=== PATIENT | female | born 1980 | race Caucasian/White ===

== ENCOUNTER 2021-05-12 13:22 | Emergency (ER) | payer MEDICAID, OTHER ==
--- NOTE | 2021-05-12 14:03 | EDM.PDOC ---
ED HPI GENERAL MEDICAL PROBLEM - General Chief Complaint: Respiratory Problem Stated Complaint: RESPIRATORY ISSUES Time Seen by Provider: 05/12/21 13:47 Source of Information: Reports: Patient, RN Notes Reviewed History Limitations: Reports: No Limitations - History of Present Illness INITIAL COMMENTS - FREE TEXT/NARRATIVE: 41-year-old female presents emergency department day complaint of cough and congestion she has not had any fevers she does have reactive airway disease with recurrent bronchitis has been out of her inhaler she does have one individual in her house who is ill. 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: Reports: - Infectious Disease History Infectious Disease History: Reports: Chicken Pox - Past Surgical History HEENT Surgical History: Reports: Adenoidectomy, Naso-Sinus Surgery GI Surgical History: Reports: Appendectomy Female Surgical History: Reports: Tubal Ligation Social & Family History - Tobacco Use Tobacco Use Status *Q: Current Every Day Tobacco User Years of Tobacco use: 10 Packs/Tins Daily: 0.5 - Recreational Drug Use Recreational Drug Use: No ED ROS GENERAL - Review of Systems Review Of Systems: See Below Constitutional: Denies: Fever, Chills HEENT: Reports: No Symptoms Respiratory: Reports: Shortness of Breath, Wheezing, Cough. Denies: Sputum Cardiovascular: Reports: Dyspnea on Exertion GI/Abdominal: Reports: No Symptoms ED EXAM, GENERAL - Physical Exam Exam: See Below Exam Limited By: No Limitations General Appearance: Alert, WD/WN, No Apparent Distress Respiratory/Chest: No Respiratory Distress, No Accessory Muscle Use, Chest Non- Tender, Decreased Breath Sounds, Rhonchi Cardiovascular: Regular Rate, Rhythm, No Murmur Course - Vital Signs Last Recorded V/S: Last Vital Signs Temp 97.8 F 05/12/21 13:55 Pulse 80 05/12/21 13:55 Resp 14 05/12/21 13:55 BP 130/73 05/12/21 13:55 Pulse Ox 97 05/12/21 13:55 - Orders/Labs/Meds Labs: Laboratory Tests 05/12/21 Range/Units 14:12 SARS CoV-2 RNA Rapid SUJATA Negative Departure - Departure Time of Disposition: 14:34 Disposition: Home, Self-Care 01 Condition: Fair Clinical Impression: Acute bronchiolitis Qualifiers: Bronchiolitis organism: other organism Qualified Code(s): J21.8 - Acute bronchiolitis due to other specified organisms - Discharge Information Prescriptions: Amoxicillin/Potassium Clav [Augmentin 875-125 Tablet] 1 each PO BID #14 tablet Albuterol [Proventil HFA] 2 puff INH Q4H PRN #1 ea PRN Reason: Dyspnea Albuterol [Proventil Neb Soln] 2.5 mg .XX QID PRN #90 ml PRN Reason: Dyspnea Instructions: Upper Respiratory Infection, Adult, [id number] Referrals: PCP,None [Primary Care Provider] - Forms: ED Department Discharge Additional Instructions: Take full course of antibiotics use your albuterol inhaler as needed, please followup with your primary care provider in 3-5 days if not better, please call return to the emergency department with worsening of symptoms., Sepsis Event Note (ED) - Evaluation Sepsis Screening Result: No Definite Risk - Focused Exam Vital Signs: Vital Signs Temp Pulse Resp BP Pulse Ox 05/12/21 13:55 97.8 F 80 14 130/73 97 05/12/21 13:49 97.8 F 80 14 130/73 97 - Assessment/Plan Plan: Assessment Acuity = acute Site and laterality = bronchitis Etiology = unknown Manifestations = cough Location of injury = Home Lab values = Covid test negative Plan Like to treat empirically Augmentin 875 p.o. twice daily x7 days, refilled albuterol nebs and inhaler follow-up primary care 3 to 5 days if not better medications faxed to [facility] This note was dictated using [employer] recognition software please call with any questions on syntax or grammar.
== END 2021-05-12 14:49 | disposition home or self-care (01) ==
LOC: MERGE 13:22 → JP.ED 13:22
DX: J21.8 Acute bronchiolitis due to other specified organisms (principal); Z72.0 Tobacco use; Z20.822 Contact with and (suspected) exposure to COVID-19
CPT/HCPCS: 99283; U0002

== ENCOUNTER 2021-05-14 05:23 | Emergency (ER) | payer MEDICAID ==
--- NOTE | 2021-05-14 05:42 | EDM.PDOC ---
ED HPI GENERAL MEDICAL PROBLEM - General Chief Complaint: Respiratory Problem Stated Complaint: SOB Time Seen by Provider: 05/14/21 05:35 Source of Information: Reports: Patient History Limitations: Reports: No Limitations - History of Present Illness INITIAL COMMENTS - FREE TEXT/NARRATIVE: pt had a bronchitis and was seen on Thursday. She was placed on augmentin Onset: Gradual Duration: Day(s):, Getting Worse Location: Reports: Chest Associated Symptoms: Reports: Cough Upper Chest Pain Score (Numeric/FACES): 2 - Related Data Allergies Allergy/AdvReac Type Severity Reaction Status Date / Time No Known Allergies Allergy Verified 05/16/21 14:02 Home Meds: Home Meds Albuterol [Proventil HFA] 2 puff INH Q4H PRN #1 ea 05/12/21 [Rx] Albuterol [Proventil Neb Soln] 2.5 mg .XX QID PRN #90 ml 05/12/21 [Rx] Amoxicillin/Potassium Clav [Augmentin 875-125 Tablet] 1 each PO BID #14 tablet 05/12/21 [Rx] Past Medical History Respiratory History: Reports: Bronchitis, Recurrent Gastrointestinal History: Reports: None 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: - Infectious Disease History Infectious Disease History: Reports: Chicken Pox - Past Surgical History HEENT Surgical History: Reports: Adenoidectomy, Naso-Sinus Surgery GI Surgical History: Reports: Appendectomy Female Surgical History: Reports: Tubal Ligation ED ROS GENERAL - Review of Systems Review Of Systems: See Below Constitutional: Reports: Chills HEENT: Reports: No Symptoms, Sinus Problem Respiratory: Reports: Shortness of Breath, Wheezing, Cough Cardiovascular: Reports: No Symptoms Endocrine: Reports: No Symptoms GI/Abdominal: Reports: No Symptoms : Reports: No Symptoms Musculoskeletal: Reports: No Symptoms Skin: Reports: No Symptoms Neurological: Reports: No Symptoms Psychiatric: Reports: Anxiety ED EXAM, GENERAL - Physical Exam Exam: See Below Free Text/Narrative:: pt arrived feeling sob. She was very wheezy. She has been using her neb every 6 hours. She has not had a fever. Exam Limited By: No Limitations General Appearance: Alert, Anxious, Moderate Distress Ears: Normal TMs Nose: Normal Inspection Throat/Mouth: Normal Inspection Head: Atraumatic Neck: Normal Inspection Respiratory/Chest: Decreased Breath Sounds, Wheezing Cardiovascular: Regular Rate, Rhythm GI/Abdominal: Soft, Non-Tender Rectal (Female) Exam: Deferred Back Exam: Normal Inspection Extremities: Normal Inspection Course - Vital Signs Last Recorded V/S: Last Vital Signs Temp 36.4 C 05/14/21 05:40 Pulse 97 05/14/21 05:40 Resp 18 05/14/21 05:40 BP 120/76 05/14/21 05:40 Pulse Ox 95 05/14/21 05:40 - Orders/Labs/Meds Labs: Laboratory Tests 05/14/21 Range/Units 05:50 WBC 14.3 H (4.5-11.0) K/uL RBC 4.83 (3.30-5.50) M/uL Hgb 14.2 (12.0-15.0) g/dL Hct 41.5 (36.0-48.0) % MCV 86 (80-98) fL MCH 29 (27-31) pg MCHC 34 (32-36) % Plt Count 214 (150-400) K/uL Neut % (Auto) 82.2 H (36-66) % Lymph % (Auto) 9.8 L (24-44) % Carbon % (Auto) 6.8 H (2-6) % Eos % (Auto) 1.1 L (2-4) % Baso % (Auto) 0.1 (0-1) % Meds: Medications Discontinued Medications Generic Name Dose Route Start Last Admin Trade Name Freq PRN Reason Stop Dose Admin Albuterol/Ipratropium 3 ml 05/14/21 05:55 05/14/21 06:17 Albuterol/Ipratropium 3.0-0.5 Mg/3 Ml Neb Soln NEB 05/14/21 05:56 3 ml ONETIME ONE Administration Ceftriaxone Sodium 1 gm/ 50 mls @ 100 mls/hr 05/14/21 06:36 05/14/21 06:46 Sodium Chloride IV 05/14/21 07:05 100 mls/hr ONETIME ONE Administration Methylprednisolone Sodium Succinate 125 mg 05/14/21 05:54 05/14/21 06:15 Methylprednisolone Sodium Succinate 125 Mg/2 Ml Sdv IVPUSH 05/14/21 05:55 125 mg ONETIME ONE Administration Sodium Chloride 10 ml 05/14/21 05:54 05/14/21 06:19 Sodium Chloride 0.9% 10 Ml Syringe FLUSH 10 ml ASDIRECTED PRN Administration Keep Vein Open - Re-Assessments/Exams Free Text/Narrative Re-Assessment/Exam: 05/14/21 06:41 pt was given solumedrol 125 mg iv. She was given rocephen 1 gram, She had a chest xray which did not show a pneumonia her wbc was elevated. Departure - Departure Time of Disposition: 06:42 Disposition: Home, Self-Care 01 Condition: Fair Clinical Impression: Bronchitis - Discharge Information Instructions: Acute Bronchitis, Adult, [id number] Referrals: PCP,None [Primary Care Provider] - Forms: ED Department Discharge Care Plan Goals: no work on wed, push fluids, cool mist humidfier, continue augmentin, continue nebs, and add predisone 20 mg for 2 days 15 mg for 2 days and 10 mg daily for 5 days.
[2021-05-14] MEDS ORDERED: methylPREDNISolone Sodium Succinate 125 MG/2 ML SDV IVPUSH ONE (05:54)
[2021-05-14] MEDS ORDERED: Sodium Chloride 0.9% 10 ML Syringe FLUSH PRN (05:54)
[2021-05-14] MEDS ORDERED: Albuterol/Ipratropium 3.0-0.5 MG/3 ML Neb Soln NEB ONE (05:55)
[2021-05-14] MEDS ORDERED: cefTRIAXone 1 GM in Sodium Chloride 0.9% 50 ML IV ONE (06:36)
--- NOTE | 2021-05-14 10:21 | CR ---
CHEST: 2 view CLINICAL HISTORY:SOB and cough COMPARISON:None FINDINGS: The heart size, pulmonary vascularity and hilar structures are normal. No infiltrate effusion or pneumothorax is seen. IMPRESSION: No acute cardiopulmonary process.
== END 2021-05-14 07:16 | disposition home or self-care (01) ==
LOC: MERGE 05:23 → JP.ED 05:23
DX: J40 Bronchitis, not specified as acute or chronic (principal)
CPT/HCPCS: 36415; 71046; 85025; 94640; J0696; J2930; 96365; 96375; 99284-25; J7620-GY

== ENCOUNTER 2021-09-20 09:17 | Emergency (ER) | payer MEDICAID ==
--- NOTE | 2021-09-20 11:17 | EDM.PDOC ---
ED HPI GENERAL MEDICAL PROBLEM - General Chief Complaint: Respiratory Problem Stated Complaint: COUGHING UP BLOOD Time Seen by Provider: 09/20/21 11:05 Source of Information: Reports: Patient, Old Records History Limitations: Reports: No Limitations - History of Present Illness INITIAL COMMENTS - FREE TEXT/NARRATIVE: 41 yo female was seen in the [facility] yesterday and had a negative Covid test and blood work. She does not know the results of the blood work. She was given an Rx for prednisone that she started this AM. Has been coughing and running a fever. Daughter with the same sx's. Today coughed up some blood and called back to the clinic and was told to come to the ER. No records forwarded from the clinic. Is not on any anticoagulants. Feels no worse than yesterday. Does smoke cigarettes. Had a CXR in clinic that was suggestive of viral bronchitis and/or viral pneumonia. WBC ct yesterday was neg. Onset: Gradual Duration: Day(s):, Constant Location: Reports: Chest, Generalized Quality: Reports: Ache (mild, diffuse) Severity: Mild Improves with: Reports: Medication (took acetaminophen a couple hrs ago) Worsens with: Reports: None Context: Reports: Other (See HPI) Associated Symptoms: Reports: Cough, Fever/Chills, Malaise, Other (hemoptysis). 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: Acetaminophen, Other (see below) (one dose of prednisone) Chest Pain Score (Numeric/FACES): 5 - Related Data Allergies Allergy/AdvReac Type Severity Reaction Status Date / Time No Known Allergies Allergy Verified 09/20/21 10:32 Home Meds: Home Meds Albuterol [Proventil HFA] 2 puff INH Q4H PRN #1 ea 05/12/21 [Rx] Albuterol [Proventil Neb Soln] 2.5 mg .XX QID PRN #90 ml 05/12/21 [Rx] Codeine/guaiFENesin [Robitussin AC] 5 - 10 ml PO Q4H PRN #1 ml 09/20/21 [Rx] Oseltamivir Phosphate 75 mg PO BID 09/20/21 [History] predniSONE [Prednisone] 40 mg PO DAILY 09/20/21 [History] Past Medical History HEENT History: Reports: Impaired Vision Respiratory History: Reports: Bronchitis, Recurrent Gastrointestinal History: Reports: None RN OCCUPATIONAL History: Reports: - Infectious Disease History Infectious Disease History: Reports: Chicken Pox - Past Surgical History HEENT Surgical History: Reports: Adenoidectomy, Naso-Sinus Surgery GI Surgical History: Reports: Appendectomy Female Surgical History: Reports: Tubal Ligation Social & Family History - Caffeine Use Caffeine Use: Reports: Coffee - Recreational Drug Use Recreational Drug Use: No ED ROS GENERAL - Review of Systems Review Of Systems: See Below Constitutional: Reports: Fever, Chills, Malaise HEENT: Reports: No Symptoms. Denies: Ear Pain, Nosebleed, Throat Pain Respiratory: Reports: Cough, Hemoptysis (once). Denies: Shortness of Breath Cardiovascular: Reports: No Symptoms Endocrine: Reports: No Symptoms GI/Abdominal: Reports: No Symptoms : Reports: No Symptoms Musculoskeletal: Reports: No Symptoms Skin: Reports: No Symptoms. Denies: Bruising Neurological: Reports: No Symptoms ED EXAM, GENERAL - Physical Exam Exam: See Below Exam Limited By: No Limitations General Appearance: Alert, WD/WN, No Apparent Distress Eye Exam: Bilateral Eye: Normal Inspection Ears: Normal External Exam, Normal Canal, Hearing Grossly Normal, Normal TMs Ear Exam: Bilateral Ear: Auricle Normal, Canal Normal, TM normal Nose: Normal Inspection, No Blood Throat/Mouth: Normal Inspection, Normal Lips, Normal Oropharynx, Normal Voice, No Airway Compromise Head: Atraumatic, Normocephalic Neck: Normal Inspection Respiratory/Chest: No Respiratory Distress, Lungs Clear, Normal Breath Sounds, No Accessory Muscle Use Cardiovascular: Regular Rate, Rhythm, No Edema GI/Abdominal: Soft, Non-Tender Extremities: Normal Inspection Neurological: Alert, Oriented, CN II-XII Intact, Normal Cognition, No Motor/Sensory Deficits Psychiatric: Normal Affect, Normal Mood Skin Exam: Warm, Dry, Intact, Normal Color, No Rash. No: Ecchymosis Course - Vital Signs Last Recorded V/S: Last Vital Signs Temp 36.8 C 09/20/21 10:27 Pulse 92 09/20/21 10:27 Resp 16 09/20/21 10:27 BP 126/69 09/20/21 10:27 Pulse Ox 96 09/20/21 10:27 - Orders/Labs/Meds Labs: Laboratory Tests 09/20/21 Range/Units 11:30 WBC 6.3 (4.5-11.0) K/uL RBC 4.90 (3.30-5.50) M/uL Hgb 14.2 (12.0-15.0) g/dL Hct 42.4 (36.0-48.0) % MCV 87 (80-98) fL MCH 29 (27-31) pg MCHC 34 (32-36) % Plt Count 171 (150-400) K/uL Neut % (Auto) 91.0 H (36-66) % Lymph % (Auto) 5.6 L (24-44) % [place] % (Auto) 3.0 (2-6) % Eos % (Auto) 0.2 L (2-4) % Baso % (Auto) 0.2 (0-1) % Departure - Departure Time of Disposition: 11:50 Disposition: Home, Self-Care 01 Condition: Fair Clinical Impression: Viral bronchitis - Discharge Information *PRESCRIPTION DRUG MONITORING PROGRAM REVIEWED*: Not Applicable *COPY OF PRESCRIPTION DRUG MONITORING REPORT IN PATIENT TIFFANIE: Not Applicable Referrals: Sommer Jeronimo MD [Primary Care Provider] - Forms: ED Department Discharge Additional Instructions: Continue acetaminophen for pain/fever control. Drink ample fluids. No smoking. Use Robitussin AC as needed for cough. Recheck with your provider as needed. Sepsis Event Note (ED) - Evaluation Sepsis Screening Result: No Definite Risk - Focused Exam Vital Signs: Vital Signs Temp Pulse Resp BP Pulse Ox 09/20/21 10:27 36.8 C 92 16 126/69 96
== END 2021-09-20 12:31 | disposition home or self-care (01) ==
LOC: JP.ED 09:17
DX: J20.8 Acute bronchitis due to other specified organisms (principal)
CPT/HCPCS: 36415; 85025; 99283

== ENCOUNTER 2022-05-24 13:54 | Emergency (ER) | payer MEDICAID | END 2022-05-24 18:00 | disposition home or self-care (01) | LOC: JP.ED 13:54 | DX: J40 Bronchitis, not specified as acute or chronic (principal); J98.01 Acute bronchospasm; Z20.822 Contact with and (suspected) exposure to COVID-19 | CPT/HCPCS: 36415; 85025; 99284; U0002 ==

== ENCOUNTER 2022-10-26 14:54 | Emergency (ER) | payer MEDICAID ==
[2022-10-26 15:49] LABS: CORONAVIRUS COVID-19 NAA NEGATIVE (NEGATIVE)
[2022-10-26] MEDS ORDERED: Lidocaine 2% Viscous Solution 15 ML UD PO ONE (16:00)
== END 2022-10-26 16:19 | disposition home or self-care (01) ==
LOC: JP.ED 14:54
DX: J02.9 Acute pharyngitis, unspecified (principal); J45.909 Unspecified asthma, uncomplicated; Z72.0 Tobacco use; Z79.899 Other long term (current) drug therapy; Z20.822 Contact with and (suspected) exposure to COVID-19
CPT/HCPCS: 0241U; 87081; 87880-QW; 99282; 99283; A9270-GY

== ENCOUNTER 2022-11-16 21:17 | Emergency (ER) | payer MEDICAID ==
[2022-11-16] MEDS ORDERED: Sodium Chloride 0.9% 10 ML Syringe FLUSH PRN (21:42)
[2022-11-16] MEDS ORDERED: Sodium Chloride 0.9% 1,000 ML IV SCH (21:45)
[2022-11-16] MEDS ORDERED: Sodium Chloride 0.9% 10 ML Syringe FLUSH ONE (21:51)
[2022-11-16] MEDS ORDERED: Sodium Chloride 0.9% 50 ML IV ONE (21:51)
[2022-11-16] MEDS ORDERED: Iopamidol 612 MG/ML 100 ML Bottle IV ONE (21:51)
[2022-11-16 22:15] LABS: ESTIMATED GFR 95 mL/min (>60)
[2022-11-16 22:36] LABS: CORONAVIRUS COVID-19 NAA NEGATIVE (NEGATIVE)
[2022-11-17] MEDS ORDERED: Famotidine 20 MG Tab PO ONE (01:48)
[2022-11-17] MEDS ORDERED: Hyoscyamine 0.125 MG Tab.SL SL ONE (02:59)
== END 2022-11-17 03:22 | disposition home or self-care (01) ==
LOC: JP.ED 21:17
DX: K92.1 Melena (principal); R19.7 Diarrhea, unspecified; J45.909 Unspecified asthma, uncomplicated; F17.210 Nicotine dependence, cigarettes, uncomplicated; Z20.822 Contact with and (suspected) exposure to COVID-19
CPT/HCPCS: 0241U; 36415; 74177; 80053; 83690; 84703; 85025; 86140; 87046; 87493; 87899; 96360; 96361; 99285; A9270; J3490; J7030; Q9967; 99283

== ENCOUNTER 2023-09-19 13:06 | Emergency (ER) | payer MEDICAID ==
[2023-09-19 14:56] LABS: BASOPHILS ABSOLUTE AUTO 0.03 K/uL (0.00-0.10); BASOPHILS PERCENT AUTO 0.2 % (0.1-1.3); EOSINOPHILS PERCENT AUTO 0.8 % (0.0-5.4); HEMATOCRIT 43.3 % (34.3-46.0); HEMOGLOBIN 14.7 g/dL (11.2-15.5); IMMATURE GRAN ABSOLUTE AUTO 0.04 K/uL (0.00-0.23); IMMATURE GRAN PERCENT AUTO 0.3 % (0.0-0.7); LYMPHOCYTES ABSOLUTE AUTO 2.39 K/uL (0.8-3.3); LYMPHOCYTES PERCENT AUTO 18.3 % (11.4-47.7); MEAN CORPUSCULAR HEMOGLOBIN 29.8 pg (31.6-35.5); MEAN CORPUSCULAR HGB CONC 33.9 g/dL (31.6-35.5); MEAN CORPUSCULAR VOLUME 87.8 fL (81.4-99.0); MONOCYTES ABSOLUTE AUTO 0.81 K/uL (0.20-0.90); MONOCYTES PERCENT AUTO 6.2 % (3.3-12.6); NEUTROPHILS ABSOLUTE AUTO 9.67 K/uL (1.0-7.6); NEUTROPHILS PERCENT AUTO 74.2 % (40.0-78.1); PLATELET COUNT,PLT 239 K/uL (130-375); RED BLOOD CELL COUNT 4.93 M/uL (3.77-5.24)
== END 2023-09-19 15:35 | disposition home or self-care (01) ==
LOC: JP.ED 13:06
DX: K64.8 Other hemorrhoids (principal); J44.89 Other specified chronic obstructive pulmonary disease; F17.210 Nicotine dependence, cigarettes, uncomplicated; Z86.16 Personal history of COVID-19
CPT/HCPCS: 36415; 85025; 99283

== ENCOUNTER 2024-12-04 08:38 | Emergency (ER) | payer BC | END 2024-12-04 09:55 | disposition home or self-care (01) | LOC: JP.ED 08:38 | DX: M25.562 Pain in left knee (principal); J45.909 Unspecified asthma, uncomplicated; F17.210 Nicotine dependence, cigarettes, uncomplicated; Z86.16 Personal history of COVID-19; Z90.49 Acquired absence of other specified parts of digestive tract; Z79.51 Long term (current) use of inhaled steroids; Z79.899 Other long term (current) drug therapy | CPT/HCPCS: 73562-26-LT; 73562-LT; 99283 ==

== ENCOUNTER 2025-06-21 05:34 | Emergency (ER) | payer BC ==
[2025-06-21] MEDS: methylPREDNISolone Sodium Succinate 40 MG/1 ML SDV IVPUSH ONE (06:16)
[2025-06-21] MEDS: Sodium Chloride 0.9% 10 ML Syringe FLUSH PRN (06:16)
== END 2025-06-21 07:11 | disposition home or self-care (01) ==
LOC: JP.ED 05:34
DX: J45.21 Mild intermittent asthma with (acute) exacerbation (principal); F17.210 Nicotine dependence, cigarettes, uncomplicated; E66.9 Obesity, unspecified; Z86.16 Personal history of COVID-19; Z79.899 Other long term (current) drug therapy; Z68.41 Body mass index [BMI] 40.0-44.9, adult
CPT/HCPCS: 71045; 94640; 96374; 99285; J2919; J7620; A9270-GY